=== PATIENT | male | born 1990 | race Caucasian/White ===

== ENCOUNTER 2018-01-21 16:33 | Emergency (ER) | payer BC ==
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
[2018-01-21 18:39] VITALS: BP 137/68
== END 2018-01-21 18:41 | disposition home or self-care (01) ==
LOC: ER 16:33
DX: T75.1XXA Unspecified effects of drowning and nonfatal submersion, initial encounter (principal); W69.XXXA Accidental drowning and submersion while in natural water, initial encounter; Y93.89 Activity, other specified; Y92.832 Beach as the place of occurrence of the external cause; Z88.1 Allergy status to other antibiotic agents
CPT/HCPCS: 71046; 99285